=== PATIENT | female | born 1985 | race Caucasian/White ===

== ENCOUNTER 2017-02-02 14:31 | Emergency (ER) | payer OTHER ==
[2017-02-02] MEDS ORDERED: NS 1,000 ML IV ONE (14:44)
--- NOTE | 2017-02-02 14:44 | EDPHY ---
H & P Stated Complaint: Right side pain, Nausea, Time Seen by Provider: 02/02/17 14:44 HPI/ROS: CHIEF COMPLAINT: Right back pain HISTORY OF PRESENT ILLNESS: The patient has a history of chronic right lower quadrant pelvic pain. She presents to the ED today with complaints of right flank pain. The patient describes a sensation of a muscle spasm throughout her posterior right lumbar sacral spine. The patient denies acute numbness or weakness. The patient denies additional complaints. The patient has had some symptoms of mild dysuria over the past several days. She reports she has had 3 pelvic ultrasounds for evaluation of her right lower quadrant pain in the past all of which have been negative. The patient has no history of nephrolithiasis, ureterolithiasis or frequent urinary tract infections. REVIEW OF SYSTEMS: A comprehensive 10 point review of systems is otherwise negative aside from elements mentioned in the history of present illness. Source: Patient Exam Limitations: No limitations - Personal History LMP (Females 10-55): 15-21 Days Ago Current Tetanus/Diphtheria Vaccine: Yes Current Tetanus Diphtheria and Acellular Pertussis (TDAP): Yes - Medical/Surgical History Hx Asthma: No Hx Chronic Respiratory Disease: No Hx Diabetes: No Hx Cardiac Disease: No Hx Renal Disease: Yes Hx Cirrhosis: No Hx Alcoholism: No Hx HIV/AIDS: No Hx Splenectomy or Spleen Trauma: No Other PMH: PMH: acute kidney failure - Social History Smoking Status: Never smoked - Physical Exam Exam: General Appearance: Alert, no distress Eyes: Pupils equal and round no pallor or injection ENT, Mouth: Mucous membranes moist Respiratory: There are no retractions, lungs are clear to auscultation Cardiovascular: Regular rate and rhythm Gastrointestinal: Minimal tenderness to palpation noted in the right mid quadrant, right CVA tenderness Neurological: A&O, normal motor function, normal sensory exam, normal cranial nerves Skin: Warm and dry, no rashes Musculoskeletal: Tenderness to palpation noted throughout the right lumbar paraspinal muscles Extremities: symmetrical, full range of motion Constitutional: Initial Vital Signs Temperature (C) 36.9 C 02/02/17 14:38 Heart Rate 79 02/02/17 14:38 Respiratory Rate 18 02/02/17 14:38 Blood Pressure 142/92 H 02/02/17 14:38 O2 Sat (%) 98 02/02/17 14:38 O2 Delivery Mode Room Air Allergies/Adverse Reactions: No Known Allergies Allergy (Unverified 02/02/17 14:41) Home Medications: Medication Instructions Recorded Cephalexin [Keflex] 500 mg PO TID #15 cap 02/02/17 Hydrocodone/APAP 5/325 [[place] 1 - 2 each PO Q6 PRN #20 tab 02/02/17 5/325] Medical Decision Making - Diagnostics Imaging Results: Imaging Impressions Abdomen/Pelvis CT 02/02/17 18:59 Impression: 1. Possibly abnormal right ovary. 2. No nephro or ureterolithiasis. Results called and discussed with Demond Murray, at 02/02/2017 20:16 Attention: This CT examination is specifically designed to evaluate patients who are clinically suspected of having acute obstructive uropathy. This examination does not use radiographic contrast, and as such, provides only a limited evaluation of the abdomen, pelvis and retroperitoneum. If there is further clinical suspicion for pathological conditions other than obstructive uropathy, a complete CT evaluation of the abdomen and pelvis utilizing intravenous, oral, and rectal contrast should be considered. General information for patients regarding this examination can be found at [email or web address]. If you have questions or comments about this report, please contact me at [phone] (hospital) or [phone] (cell). ED Course/Re-evaluation: The patient presents to the ED with complaints of right flank pain, right musculoskeletal lumbar pain and a history of chronic right lower quadrant pain. The patient has had some symptoms of dysuria over the past 2 days. The patient denies fever, vomiting or diarrhea. The patient had an IV established. She received 30 mg of IV Toradol. The patient did have some improvement of her symptoms. She was noted to have pyuria and hematuria on her urinalysis. The patient did have CVA tenderness. Given the pyuria and hematuria a CT scan of the abdomen pelvis was ordered which demonstrates no evidence of nephrolithiasis or hydronephrosis. The patient was re-evaluated at 8:40 p.m.. She is feeling better after Toradol. At this point time I feel it is reasonable to treat her urinary tract infection, give her medications for pain as well as anti-inflammatories. I find no evidence of an acute process in her right lower quadrant clinically. Patient will follow up with her primary care provider. She does understand return to the ED this weekend for any markedly worsening symptoms or other concerns. Differential Diagnosis: Differential diagnosis considered includes pyelonephritis, ureterolithiasis, myofascial strain, appendicitis - Data Points Laboratory Results: Laboratory Results 02/02/17 14:55 02/02/17 14:55 02/02/17 02/02/17 02/02/17 14:55 14:55 14:54 WBC 10.43 10^3/uL H 10^3/uL (3.80-9.50) RBC 4.84 10^6/uL 10^6/uL (4.18-5.33) Hgb 14.2 g/dL g/dL (12.6-16.3) Hct 41.3 % % (38.0-47.0) MCV 85.3 fL fL (81.5-99.8) MCH 29.3 pg pg (27.9-34.1) MCHC 34.4 g/dL g/dL (32.4-36.7) RDW 13.1 % % (11.5-15.2) Plt Count 323 10^3/uL 10^3/uL (150-400) MPV 10.4 fL fL (8.7-11.7) Neut % (Auto) 62.6 % % (39.3-74.2) Lymph % (Auto) 26.3 % % (15.0-45.0) Chase % (Auto) 8.4 % % (4.5-13.0) Eos % (Auto) 2.0 % % (0.6-7.6) Baso % (Auto) 0.4 % % (0.3-1.7) Nucleat RBC Rel Count 0.0 % % (0.0-0.2) Absolute Neuts (auto) 6.53 10^3/uL H 10^3/uL (1.70-6.50) Absolute Lymphs (auto) 2.74 10^3/uL 10^3/uL (1.00-3.00) Absolute Monos (auto) 0.88 10^3/uL H 10^3/uL (0.30-0.80) Absolute Eos (auto) 0.21 10^3/uL 10^3/uL (0.03-0.40) Absolute Basos (auto) 0.04 10^3/uL 10^3/uL (0.02-0.10) Absolute Nucleated RBC 0.00 10^3/uL 10^3/uL (0-0.01) Immature Gran % 0.3 % % (0.0-1.1) Immature Gran # 0.03 10^3/uL 10^3/uL (0.00-0.10) Sodium 139 mEq/L mEq/L (134-144) Potassium 3.7 mEq/L mEq/L (3.5-5.2) Chloride 105 mEq/L mEq/L (97-110) Carbon Dioxide 23 mEq/l mEq/l (22-31) Anion Gap 11 mEq/L mEq/L (8-16) BUN 14 mg/dL mg/dL (7-23) Creatinine 0.9 mg/dL mg/dL (0.6-1.0) Estimated GFR > 60 Glucose 87 mg/dL mg/dL (70-100) Calcium 9.2 mg/dL mg/dL (8.5-10.4) Total Bilirubin 0.7 mg/dL mg/dL (0.1-1.4) Conjugated Bilirubin 0.5 mg/dL mg/dL (0.0-0.5) Unconjugated Bilirubin 0.2 mg/dL mg/dL (0.0-1.1) AST 30 IU/L IU/L (14-46) ALT 33 IU/L IU/L (9-52) Alkaline Phosphatase 70 IU/L IU/L (38-126) Total Protein 7.7 g/dL g/dL (6.3-8.2) Albumin 4.6 g/dL g/dL (3.5-5.0) Lipase 118.0 IU/L IU/L (23-300) Beta HCG, Qual Urine RBC 3-5 /hpf H /hpf (0-3) Urine WBC 5-10 /hpf H /hpf (0-3) Ur Epithelial Cells TRACE /lpf /lpf (NONE-1+) Urine Bacteria 1+ /hpf H /hpf (NONE SEEN) 02/02/17 02/02/17 14:30 14:30 WBC RBC Hgb Hct MCV MCH MCHC RDW Plt Count MPV Neut % (Auto) Lymph % (Auto) Chase % (Auto) Eos % (Auto) Baso % (Auto) Nucleat RBC Rel Count Absolute Neuts (auto) Absolute Lymphs (auto) Absolute Monos (auto) Absolute Eos (auto) Absolute Basos (auto) Absolute Nucleated RBC Immature Gran % Immature Gran # Sodium Potassium Chloride Carbon Dioxide Anion Gap BUN Creatinine Estimated GFR Glucose Calcium Total Bilirubin Cancelled Conjugated Bilirubin Cancelled Unconjugated Bilirubin Cancelled AST Cancelled ALT Cancelled Alkaline Phosphatase Cancelled Total Protein Cancelled Albumin Cancelled Lipase Cancelled Beta HCG, Qual NEGATIVE Urine RBC Urine WBC Ur Epithelial Cells Urine Bacteria Medications Given: Discontinued Medications Sodium Chloride (Ns) 1,000 mls @ 0 mls/hr IV ONCE ONE PRN Reason: Wide Open Stop: 02/02/17 14:45 Last Admin: 02/02/17 15:04 Dose: 1,000 mls Ketorolac Tromethamine (Toradol) 30 mg IVP EDNOW ONE Stop: 02/02/17 18:17 Last Admin: 02/02/17 18:16 Dose: 30 mg Departure - Departure Disposition: Home, Routine, Self-Care Clinical Impression: Strain of lumbar paraspinal muscle, Urinary tract infection Condition: Good Instructions: Urinary Tract Infection in Women (ED) Additional Instructions: 1. Take Ibuprofen or Motrin 600 mg by mouth three times a day. 2. Please schedule a follow-up appointment with your primary care provider. Please return to the ED this weekend for any markedly worsening symptoms, fever or other concerns. 3. Please take antibiotics as directed for possible urinary tract infection. 4. Referrals: Eve Braden MD [Primary Care Provider] - As per Instructions
[2017-02-02 15:07] LABS: % IMMATURE GRANULYOCYTES 0.3 % (0.0-1.1); ABSOLUTE IMMATURE GRANULOCYTES 0.03 10^3/uL (0.00-0.10); ADD DIFF? NO; ADD MORPH? NO; ADD SCAN? NO; ATYPICAL LYMPHOCYTE FLAG 10 (0-99); FRAGMENT RBC FLAG 0 (0-99); HEMATOCRIT 41.3 % (38.0-47.0); HEMOGLOBIN 14.2 g/dL (12.6-16.3); LEFT SHIFT FLG 0 (0-99); LIPEMIA HEMOLYSIS FLAG 90 (0-99); MEAN CELL HEMOGLOBIN 29.3 pg (27.9-34.1); MEAN CELL HEMOGLOBIN CONCENTR. 34.4 g/dL (32.4-36.7); MEAN CELL VOLUME 85.3 fL (81.5-99.8); MEAN PLATELET VOLUME 10.4 fL (8.7-11.7); PLATELET CLUMPS FLAG 10 (0-99); PLATELET COUNT 323 10^3/uL (150-400); RED BLOOD CELL COUNT 4.84 10^6/uL (4.18-5.33); RED CELL DISTRIBUTION WIDTH 13.1 % (11.5-15.2)
[2017-02-02 15:13] LABS: BACTERIA 1+ /hpf (NONE SEEN)
[2017-02-02 15:25] LABS: ANION GAP 11 mEq/L (8-16); CALCIUM 9.2 mg/dL (8.5-10.4); CARBON DIOXIDE 23 mEq/l (22-31); CHLORIDE 105 mEq/L (97-110); CREATININE 0.9 mg/dL (0.6-1.0); GLOMERULAR FILTRATION RATE > 60; GLUCOSE 87 mg/dL (70-100); POTASSIUM 3.7 mEq/L (3.5-5.2); SODIUM 139 mEq/L (134-144)
[2017-02-02 16:10] LABS: ALANINE AMINOTRANSFERASE 33 IU/L (9-52); ALBUMIN 4.6 g/dL (3.5-5.0); ALKALINE PHOSPHATASE 70 IU/L (38-126); ASPARTATE AMINOTRANSFERASE 30 IU/L (14-46); BILIRUBIN,TOTAL 0.7 mg/dL (0.1-1.4); BILIRUBIN-CONJUGATED 0.5 mg/dL (0.0-0.5); BILIRUBIN-UNCONJUGATED 0.2 mg/dL (0.0-1.1); TOTAL PROTEIN 7.7 g/dL (6.3-8.2)
[2017-02-02] MEDS ORDERED: KETOROLAC 30 MG/1 ML SDV IVP ONE (18:16)
[2017-02-02 18:55] VITALS: RESP 16
[2017-02-02 21:19] VITALS: BP 118/71; PULSE 78; TEMP 98.1; O2SAT 96
== END 2017-02-02 21:17 | disposition home or self-care (01) ==
DX: S39.012A Strain of muscle, fascia and tendon of lower back, initial encounter (principal); N39.0 Urinary tract infection, site not specified; B96.89 Other specified bacterial agents as the cause of diseases classified elsewhere; X58.XXXA Exposure to other specified factors, initial encounter
CPT/HCPCS: 96374; J1885